=== PATIENT | female | born 2000 | race Hispanic/Latino ===

== ENCOUNTER 2020-12-14 19:21 | Emergency (ER) | payer OTHER, SELFPAY ==
[2020-12-14 20:18] LABS: Mononucleosis NEGATIVE (NEGATIVE)
[2020-12-14 20:19] LABS: MONO NEGATIVE CONTROL ZONE White (Negative) (White); MONO POSITIVE CONTROL Pink Line (Positive) (PINK/RED)
== END 2020-12-14 20:29 | disposition home or self-care (01) ==
LOC: CSHERS 19:21
DX: J02.9 Acute pharyngitis, unspecified (principal)
CPT/HCPCS: 36415; 86308; 87081; 87430; 99283